=== PATIENT | male | born 1950 | race Native Hawaiian/Other Pacific Islander ===

== ENCOUNTER 2017-05-16 15:14 | Outpatient (CLI) | payer OTHER, BC | END 2017-05-16 16:30 | disposition home or self-care (01) | LOC: MRI 15:14 → LABW 15:14 | DX: H46.01 Optic papillitis, right eye (principal); H53.433 Sector or arcuate defects, bilateral | CPT/HCPCS: 36415; 82565; 84520; 85651; 86140; A9576 ==

== ENCOUNTER 2017-06-26 08:04 | Outpatient (CLI) | payer OTHER, BC ==
[2017-06-26 11:20] LABS: PLATELET COUNT 248 K/uL (142-355)
== END 2017-06-26 19:36 | disposition home or self-care (01) ==
LOC: LABW 08:04
DX: Z79.899 Other long term (current) drug therapy (principal); Z51.81 Encounter for therapeutic drug level monitoring; H47.013 Ischemic optic neuropathy, bilateral
CPT/HCPCS: 80061; 83090; 83516; 85027; 85384; 85597; 85598; 85613; 85651; 85730; 85732; 85810; 86039; 86140; 86146; 86147; 86148; 86235; 86255; 86849

== ENCOUNTER 2017-10-03 08:35 | Outpatient (CLI) | payer OTHER, BC ==
[2017-10-03 09:24] LABS: PLATELET COUNT 226 K/uL (142-355)
[2017-10-03 09:28] LABS: POTASSIUM 3.9 mmol/L (3.6-5.2)
== END 2017-10-03 22:04 | disposition home or self-care (01) ==
LOC: LABW 08:35
PROVIDERS: Internal Medicine Nephrology
DX: I12.9 Hypertensive chronic kidney disease with stage 1 through stage 4 chronic kidney disease, or unspecified chronic kidney disease (principal); N18.3 Chronic kidney disease, stage 3 (moderate); E11.9 Type 2 diabetes mellitus without complications; H47.013 Ischemic optic neuropathy, bilateral
CPT/HCPCS: 36415; 80053; 80061; 82306; 82570; 83036; 83090; 83970; 84100; 84155; 84165; 85027; 85384; 85651; 85810; 86140

== ENCOUNTER 2017-11-06 09:34 | Outpatient (CLI) | payer OTHER, BC ==
[2017-11-06 10:07] LABS: POTASSIUM 4.6 mmol/L (3.6-5.2)
== END 2017-11-06 19:57 | disposition home or self-care (01) ==
LOC: LABW 09:34
PROVIDERS: Internal Medicine Nephrology
DX: E11.9 Type 2 diabetes mellitus without complications (principal); N18.3 Chronic kidney disease, stage 3 (moderate)
CPT/HCPCS: 36415; 80048

== ENCOUNTER 2018-03-05 10:41 | Outpatient (CLI) | payer OTHER, BC ==
[2018-03-05 11:12] LABS: POTASSIUM 3.9 mmol/L (3.6-5.2)
[2018-03-05 11:19] LABS: PLATELET COUNT 239 K/uL (142-355)
== END 2018-03-05 19:38 | disposition home or self-care (01) ==
LOC: LABW 10:41
PROVIDERS: Internal Medicine Nephrology
DX: E78.5 Hyperlipidemia, unspecified (principal); I10 Essential (primary) hypertension; E55.9 Vitamin D deficiency, unspecified
CPT/HCPCS: 36415; 80053; 81000; 82570; 82652; 83970; 84100; 84155; 85027

== ENCOUNTER 2018-06-02 09:40 | Outpatient (CLI) | payer OTHER, BC | END 2018-06-02 19:07 | disposition home or self-care (01) | LOC: LABW 09:40 | PROVIDERS: Internal Medicine Nephrology | DX: R53.83 Other fatigue (principal); E29.0 Testicular hyperfunction; D51.8 Other vitamin B12 deficiency anemias; E29.1 Testicular hypofunction; E78.5 Hyperlipidemia, unspecified; Z79.899 Other long term (current) drug therapy | CPT/HCPCS: 36415; 80061; 82306; 82607; 82670; 83036; 84402; 84403; 84436; 84443; 84481 ==

== ENCOUNTER 2018-09-02 09:49 | Outpatient (CLI) | payer OTHER, BC ==
[2018-09-02 10:14] LABS: PLATELET COUNT 244 K/uL (142-355)
[2018-09-02 10:28] LABS: POTASSIUM 4.1 mmol/L (3.6-5.2)
== END 2018-09-02 22:59 | disposition home or self-care (01) ==
LOC: LABW 09:49
PROVIDERS: Internal Medicine Nephrology
DX: I25.10 Atherosclerotic heart disease of native coronary artery without angina pectoris (principal); I10 Essential (primary) hypertension; E78.5 Hyperlipidemia, unspecified; N02.8 Recurrent and persistent hematuria with other morphologic changes; G47.33 Obstructive sleep apnea (adult) (pediatric); G25.81 Restless legs syndrome; H35.00 Unspecified background retinopathy; E11.9 Type 2 diabetes mellitus without complications
CPT/HCPCS: 36415; 80053; 81000; 82306; 82570; 83970; 84100; 84155; 85027

== ENCOUNTER 2018-09-05 11:04 | Outpatient (CLI) | payer OTHER, BC | END 2018-09-05 19:51 | disposition home or self-care (01) | LOC: LAB 11:04 | PROVIDERS: Physician Assistant Medical | DX: E03.9 Hypothyroidism, unspecified (principal); E78.5 Hyperlipidemia, unspecified; E11.65 Type 2 diabetes mellitus with hyperglycemia | CPT/HCPCS: 36415; 80061; 83036 ==

== ENCOUNTER 2018-10-20 09:38 | Outpatient (CLI) | payer OTHER, BC ==
[2018-10-20 09:52] LABS: PLATELET COUNT 200 K/uL (142-355)
[2018-10-20 10:05] LABS: POTASSIUM 4.8 mmol/L (3.6-5.2)
== END 2018-10-20 20:21 | disposition home or self-care (01) ==
LOC: LABW 09:38
PROVIDERS: Internal Medicine Cardiovascular Disease
DX: I10 Essential (primary) hypertension (principal); E78.49 Other hyperlipidemia; I25.10 Atherosclerotic heart disease of native coronary artery without angina pectoris; Z79.899 Other long term (current) drug therapy
CPT/HCPCS: 36415; 80053; 80061; 85027

== ENCOUNTER 2018-11-26 09:03 | Outpatient (CLI) | payer OTHER, BC | END 2018-11-26 23:41 | disposition home or self-care (01) | LOC: LABW 09:03 | PROVIDERS: Internal Medicine Cardiovascular Disease | DX: E78.49 Other hyperlipidemia (principal) | CPT/HCPCS: 36415; 80061; 84450; 84460 ==

== ENCOUNTER 2019-01-26 09:27 | Outpatient (CLI) | payer OTHER, BC ==
[2019-01-26 09:58] LABS: POTASSIUM 4.5 mmol/L (3.6-5.2)
== END 2019-01-26 20:30 | disposition home or self-care (01) ==
LOC: LABW 09:27
PROVIDERS: Internal Medicine Cardiovascular Disease
DX: Z13.1 Encounter for screening for diabetes mellitus (principal); I10 Essential (primary) hypertension; E78.49 Other hyperlipidemia; I25.10 Atherosclerotic heart disease of native coronary artery without angina pectoris; E11.9 Type 2 diabetes mellitus without complications; Z79.899 Other long term (current) drug therapy
CPT/HCPCS: 36415; 80053; 80061; 83036

== ENCOUNTER 2019-06-30 10:12 | Outpatient (CLI) | payer OTHER, BC | END 2019-06-30 19:37 | disposition home or self-care (01) | LOC: LABW 10:12 | PROVIDERS: Internal Medicine Cardiovascular Disease | DX: Z12.5 Encounter for screening for malignant neoplasm of prostate (principal); I10 Essential (primary) hypertension; E78.49 Other hyperlipidemia; I25.10 Atherosclerotic heart disease of native coronary artery without angina pectoris; E11.9 Type 2 diabetes mellitus without complications; Z79.899 Other long term (current) drug therapy; E55.9 Vitamin D deficiency, unspecified; N40.0 Benign prostatic hyperplasia without lower urinary tract symptoms | CPT/HCPCS: 80053; 80061; 82306; 83036; 84153 ==

== ENCOUNTER 2019-08-26 13:41 | Outpatient (CLI) | payer OTHER, BC | END 2019-08-26 22:34 | disposition home or self-care (01) | LOC: RAD 13:41 | DX: M25.562 Pain in left knee (principal) ==

== ENCOUNTER 2019-11-17 13:27 | Outpatient (CLI) | payer OTHER, BC | END 2019-11-17 19:12 | disposition home or self-care (01) | LOC: MRI 13:27 | DX: M54.5 Low back pain (principal) ==

== ENCOUNTER 2020-04-06 09:44 | Outpatient (CLI) | payer OTHER, BC ==
[2020-04-06 10:14] LABS: PLATELET COUNT 209 K/uL (142-355)
[2020-04-06 10:41] LABS: POTASSIUM 3.8 mmol/L (3.6-5.2)
== END 2020-04-06 20:07 | disposition home or self-care (01) ==
LOC: LABW 09:44
PROVIDERS: Internal Medicine Nephrology
DX: E11.9 Type 2 diabetes mellitus without complications (principal); E78.49 Other hyperlipidemia; G25.81 Restless legs syndrome; G47.33 Obstructive sleep apnea (adult) (pediatric); H35.00 Unspecified background retinopathy; I10 Essential (primary) hypertension; I25.10 Atherosclerotic heart disease of native coronary artery without angina pectoris; N02.8 Recurrent and persistent hematuria with other morphologic changes; R97.20 Elevated prostate specific antigen [PSA]; E34.8 Other specified endocrine disorders; R53.83 Other fatigue; Z12.5 Encounter for screening for malignant neoplasm of prostate; E03.8 Other specified hypothyroidism; F41.8 Other specified anxiety disorders; E55.9 Vitamin D deficiency, unspecified; D51.8 Other vitamin B12 deficiency anemias; R68.82 Decreased libido
CPT/HCPCS: 36415; 80053; 80061; 82306; 82607; 82670; 83036; 83970; 84100; 84153; 84403; 84443; 84481; 85027

== ENCOUNTER 2020-07-21 08:56 | Outpatient (CLI) | payer BC ==
[2020-07-21 09:12] LABS: PLATELET COUNT 280 K/uL (142-355)
[2020-07-21 09:26] LABS: POTASSIUM 3.8 mmol/L (3.6-5.2)
== END 2020-07-21 20:05 | disposition home or self-care (01) ==
LOC: LABW 08:56
PROVIDERS: ATTEND Internal Medicine Nephrology
DX: E11.9 Type 2 diabetes mellitus without complications (principal); E78.49 Other hyperlipidemia; G25.81 Restless legs syndrome; G47.33 Obstructive sleep apnea (adult) (pediatric); H35.00 Unspecified background retinopathy; I10 Essential (primary) hypertension; I25.10 Atherosclerotic heart disease of native coronary artery without angina pectoris; N02.8 Recurrent and persistent hematuria with other morphologic changes
CPT/HCPCS: 36415; 80053; 80061; 82306; 83036; 83970; 84100; 85027

== ENCOUNTER 2020-10-10 14:17 | Outpatient (CLI) | payer BC ==
[2020-10-10 14:46] LABS: PLATELET COUNT 362 K/uL (142-355)
[2020-10-10 14:51] LABS: POTASSIUM 3.7 mmol/L (3.6-5.2)
== END 2020-10-10 22:31 | disposition home or self-care (01) ==
LOC: LAB 14:17
PROVIDERS: ATTEND Internal Medicine Infectious Disease
DX: A41.53 Sepsis due to Serratia (principal); E11.65 Type 2 diabetes mellitus with hyperglycemia; D72.828 Other elevated white blood cell count; M86.8X8 Other osteomyelitis, other site
CPT/HCPCS: 80053; 85027; 86140

== ENCOUNTER 2020-10-18 10:20 | Outpatient (CLI) | payer BC ==
[2020-10-18 10:52] LABS: PLATELET COUNT 554 K/uL (142-355)
[2020-10-18 11:22] LABS: POTASSIUM 4.6 mmol/L (3.6-5.2)
== END 2020-10-18 19:48 | disposition home or self-care (01) ==
LOC: LAB 10:20
PROVIDERS: ATTEND Internal Medicine Infectious Disease
DX: M86.8X8 Other osteomyelitis, other site (principal); Z47.89 Encounter for other orthopedic aftercare; E11.65 Type 2 diabetes mellitus with hyperglycemia
CPT/HCPCS: 80053; 85027; 86140

== ENCOUNTER 2020-10-25 10:51 | Outpatient (CLI) | payer BC ==
[2020-10-25 11:12] LABS: PLATELET COUNT 325 K/uL (142-355)
[2020-10-25 11:24] LABS: POTASSIUM 4.3 mmol/L (3.6-5.2)
== END 2020-10-25 22:00 | disposition home or self-care (01) ==
LOC: LAB 10:51
PROVIDERS: ATTEND Internal Medicine Infectious Disease
DX: M86.8X8 Other osteomyelitis, other site (principal); Z47.89 Encounter for other orthopedic aftercare; E11.65 Type 2 diabetes mellitus with hyperglycemia
CPT/HCPCS: 80053; 85027; 86140

== ENCOUNTER 2020-11-01 11:14 | Outpatient (CLI) | payer BC ==
[2020-11-01 11:54] LABS: PLATELET COUNT 219 K/uL (142-355)
[2020-11-01 12:29] LABS: POTASSIUM 4.3 mmol/L (3.6-5.2)
== END 2020-11-01 19:35 | disposition home or self-care (01) ==
LOC: LAB 11:14
PROVIDERS: ATTEND Internal Medicine Infectious Disease
DX: Z47.89 Encounter for other orthopedic aftercare (principal); E11.65 Type 2 diabetes mellitus with hyperglycemia; Z79.2 Long term (current) use of antibiotics; Z45.2 Encounter for adjustment and management of vascular access device; Z79.4 Long term (current) use of insulin; M86.9 Osteomyelitis, unspecified
CPT/HCPCS: 80053; 85027; 86140

== ENCOUNTER 2020-11-08 10:44 | Outpatient (CLI) | payer BC ==
[2020-11-08 11:01] LABS: PLATELET COUNT 214 K/uL (142-355)
[2020-11-08 11:21] LABS: POTASSIUM 4.3 mmol/L (3.6-5.2)
== END 2020-11-08 22:06 | disposition home or self-care (01) ==
LOC: LAB 10:44
PROVIDERS: ATTEND Internal Medicine Infectious Disease
DX: Z47.89 Encounter for other orthopedic aftercare (principal); E11.65 Type 2 diabetes mellitus with hyperglycemia; Z79.2 Long term (current) use of antibiotics; Z45.2 Encounter for adjustment and management of vascular access device; Z79.4 Long term (current) use of insulin; M86.8X8 Other osteomyelitis, other site
CPT/HCPCS: 80053; 85027; 86140

== ENCOUNTER 2020-11-15 11:37 | Outpatient (CLI) | payer BC ==
[2020-11-15 12:15] LABS: PLATELET COUNT 233 K/uL (142-355)
[2020-11-15 12:52] LABS: POTASSIUM 4.3 mmol/L (3.6-5.2)
== END 2020-11-15 22:16 | disposition home or self-care (01) ==
LOC: LAB 11:37
PROVIDERS: ATTEND Internal Medicine Infectious Disease
DX: Z47.89 Encounter for other orthopedic aftercare (principal); E11.65 Type 2 diabetes mellitus with hyperglycemia; Z79.2 Long term (current) use of antibiotics; Z45.2 Encounter for adjustment and management of vascular access device; Z79.4 Long term (current) use of insulin; M86.8X8 Other osteomyelitis, other site; N18.30 Chronic kidney disease, stage 3 unspecified
CPT/HCPCS: 80053; 83036; 85027; 86140

== ENCOUNTER 2020-11-22 10:45 | Outpatient (CLI) | payer BC ==
[2020-11-22 11:06] LABS: PLATELET COUNT 253 K/uL (142-355)
[2020-11-22 11:18] LABS: POTASSIUM 3.9 mmol/L (3.6-5.2)
== END 2020-11-22 22:42 | disposition home or self-care (01) ==
LOC: LAB 10:45
PROVIDERS: ATTEND Internal Medicine Infectious Disease
DX: M86.8X8 Other osteomyelitis, other site (principal); Z79.2 Long term (current) use of antibiotics
CPT/HCPCS: 80053; 85027; 86140

== ENCOUNTER 2020-11-29 10:37 | Outpatient (CLI) | payer BC ==
[2020-11-29 11:02] LABS: PLATELET COUNT 256 K/uL (142-355)
[2020-11-29 11:53] LABS: POTASSIUM 4.3 mmol/L (3.6-5.2)
== END 2020-11-29 19:23 | disposition home or self-care (01) ==
LOC: LAB 10:37
PROVIDERS: ATTEND Internal Medicine Infectious Disease
DX: Z47.89 Encounter for other orthopedic aftercare (principal); E11.65 Type 2 diabetes mellitus with hyperglycemia; Z79.2 Long term (current) use of antibiotics; Z45.2 Encounter for adjustment and management of vascular access device; Z79.4 Long term (current) use of insulin; M86.8X8 Other osteomyelitis, other site
CPT/HCPCS: 80053; 85027; 86140

== ENCOUNTER 2020-12-13 11:03 | Outpatient (CLI) | payer BC ==
[2020-12-20 16:55] LABS: POTASSIUM 4.4 mmol/L (3.6-5.2)
[2020-12-20 16:56] LABS: PLATELET COUNT 206 K/uL (142-355)
== END 2020-12-13 17:00 | disposition home or self-care (01) ==
LOC: LAB 11:03
PROVIDERS: ATTEND Internal Medicine Infectious Disease
DX: Z47.89 Encounter for other orthopedic aftercare (principal); E11.65 Type 2 diabetes mellitus with hyperglycemia; Z79.2 Long term (current) use of antibiotics; Z45.2 Encounter for adjustment and management of vascular access device; Z79.4 Long term (current) use of insulin; M86.8X8 Other osteomyelitis, other site
CPT/HCPCS: 36415; 80053; 85027; 86140

== ENCOUNTER 2020-12-20 10:31 | Outpatient (CLI) | payer BC ==
[2020-12-20 10:59] LABS: POTASSIUM 4.2 mmol/L (3.6-5.2)
[2020-12-20 11:40] LABS: PLATELET COUNT 230 K/uL (142-355)
== END 2020-12-20 19:15 | disposition home or self-care (01) ==
LOC: LAB 10:31
PROVIDERS: ATTEND Internal Medicine Infectious Disease
DX: Z47.89 Encounter for other orthopedic aftercare (principal); E11.65 Type 2 diabetes mellitus with hyperglycemia; Z79.2 Long term (current) use of antibiotics; Z45.2 Encounter for adjustment and management of vascular access device; Z79.4 Long term (current) use of insulin; M86.8X8 Other osteomyelitis, other site
CPT/HCPCS: 80053; 85027; 86140

== ENCOUNTER 2020-12-20 23:32 | Emergency (ER) | payer BC ==
[~2020-12-20] VITALS: Ht 177.8 cm; Wt 94.3 kg
[2020-12-20 23:41] VITALS: TEMP 98.2
[2020-12-21 01:05] LABS: PLATELET COUNT 248 K/uL (142-355)
[2020-12-21 01:09] LABS: POTASSIUM 3.5 mmol/L (3.6-5.2); SODIUM 141 mmol/L (136-145)
[2020-12-21 01:39] VITALS: BP 161/89
== END 2020-12-21 01:39 | disposition home or self-care (01) ==
LOC: ED 23:32
PROVIDERS: Family Medicine
DX: I10 Essential (primary) hypertension (principal); K29.70 Gastritis, unspecified, without bleeding
CPT/HCPCS: 36415; 80053; 82150; 83690; 84484; 85027; 93005; 99283

== ENCOUNTER 2020-12-21 03:25 | Emergency (ER) | payer BC ==
[~2020-12-21] VITALS: Ht 177.8 cm; Wt 94.3 kg
[2020-12-21 03:30] VITALS: BP 191/107; TEMP 98.2
== END 2020-12-21 05:20 | disposition home or self-care (01) ==
LOC: ED 03:25
DX: K59.09 Other constipation (principal); K29.70 Gastritis, unspecified, without bleeding; I10 Essential (primary) hypertension
CPT/HCPCS: 99283

== ENCOUNTER 2021-02-06 08:22 | Outpatient (CLI) | payer BC ==
[2021-02-06 09:09] LABS: PLATELET COUNT 289 K/uL (142-355)
[2021-02-06 09:41] LABS: POTASSIUM 4.8 mmol/L (3.6-5.2)
== END 2021-02-06 21:43 | disposition home or self-care (01) ==
LOC: LABW 08:22
PROVIDERS: ATTEND Internal Medicine Nephrology
DX: A49.8 Other bacterial infections of unspecified site (principal); S31.000D Unspecified open wound of lower back and pelvis without penetration into retroperitoneum, subsequent encounter; X58.XXXA Exposure to other specified factors, initial encounter; Y93.89 Activity, other specified; Y92.89 Other specified places as the place of occurrence of the external cause; R97.20 Elevated prostate specific antigen [PSA]; R73.9 Hyperglycemia, unspecified; I25.10 Atherosclerotic heart disease of native coronary artery without angina pectoris; E29.1 Testicular hypofunction; I10 Essential (primary) hypertension; N02.8 Recurrent and persistent hematuria with other morphologic changes; G47.33 Obstructive sleep apnea (adult) (pediatric); G25.81 Restless legs syndrome; H35.00 Unspecified background retinopathy; E11.9 Type 2 diabetes mellitus without complications
CPT/HCPCS: 36415; 80053; 80061; 81000; 82306; 82570; 83036; 83516; 83880; 83970; 84100; 84153; 84155; 84436; 84443; 84479; 85027; 85652; 86140; 86255

== ENCOUNTER → 2021-05-29 | Outpatient (CLI) | payer BC | LOC: RAD 13:34 | PROVIDERS: ATTEND Physician Assistant | DX: M25.511 Pain in right shoulder (principal); S50.02XA Contusion of left elbow, initial encounter; Y92.9 Unspecified place or not applicable ==

== ENCOUNTER 2021-10-27 09:56 | Outpatient (CLI) | payer BC | END 2021-10-27 20:46 | disposition home or self-care (01) | LOC: RAD 09:56 | PROVIDERS: ATTEND Orthopaedic Surgery | DX: M25.562 Pain in left knee (principal) ==

== ENCOUNTER 2022-01-16 10:34 | Outpatient (CLI) | payer BC ==
[2022-01-16 10:47] LABS: PLATELET COUNT 222 K/uL (142-355)
[2022-01-16 11:15] LABS: POTASSIUM 4.2 mmol/L (3.6-5.2)
== END 2022-01-16 19:04 | disposition home or self-care (01) ==
LOC: LABW 10:34
PROVIDERS: ATTEND Emergency Medicine
DX: Z12.5 Encounter for screening for malignant neoplasm of prostate (principal); E11.9 Type 2 diabetes mellitus without complications; E55.9 Vitamin D deficiency, unspecified; N40.0 Benign prostatic hyperplasia without lower urinary tract symptoms
CPT/HCPCS: 36415; 80053; 80061; 82306; 82607; 82670; 83036; 84153; 84403; 84439; 84443; 84481; 85027; 86376

== ENCOUNTER 2022-11-29 09:58 | Outpatient (CLI) | payer BC ==
[2022-11-29 10:13] LABS: PLATELET COUNT 236 K/uL (142-355)
[2022-11-29 10:48] LABS: POTASSIUM 4.4 mmol/L (3.6-5.2)
== END 2022-11-29 19:44 | disposition home or self-care (01) ==
LOC: LABW 09:58
PROVIDERS: ATTEND Nurse Practitioner
DX: E34.8 Other specified endocrine disorders (principal); E29.1 Testicular hypofunction; E23.6 Other disorders of pituitary gland; R41.3 Other amnesia; R68.82 Decreased libido; Z12.5 Encounter for screening for malignant neoplasm of prostate; E03.8 Other specified hypothyroidism; E55.9 Vitamin D deficiency, unspecified; D51.8 Other vitamin B12 deficiency anemias; E51.8 Other manifestations of thiamine deficiency; E61.2 Magnesium deficiency; E60 Dietary zinc deficiency; F41.8 Other specified anxiety disorders; G47.00 Insomnia, unspecified; D64.89 Other specified anemias; R51.9 Headache, unspecified; R73.03 Prediabetes; R53.83 Other fatigue; N40.0 Benign prostatic hyperplasia without lower urinary tract symptoms
CPT/HCPCS: 36415; 80053; 80061; 82306; 82607; 82670; 82728; 83036; 83540; 83550; 83735; 84153; 84402; 84403; 84443; 84481; 85027